=== PATIENT | female | born 1995 | race Caucasian/White ===

== ENCOUNTER 2016-11-27 21:55 | Inpatient (IN) | payer MEDICAID ==
[~2016-11-27] VITALS: Ht 165.1 cm; Wt 81.6 kg
[2016-11-27] MEDS ORDERED: DEXT 5%/LR + PITOCIN 20UNITS/L 1,000 ML IV SCH ×2 (21:58→23:40)
[2016-11-27] MEDS ORDERED: LACTATED RINGERS 1,000 ML IV SCH (21:58)
[2016-11-27] MEDS ORDERED: PENICILLIN G POTASSIUM 5 MMU in DEXT 5% WATER 100 ML IV NR (22:00)
[2016-11-27] MEDS ORDERED: NALOXONE HCL 0.4 MG/ML 1ML VIAL IM PRN (22:00)
[2016-11-27] MEDS ORDERED: CARBOPROST TROMETHAMINE 250 MCG/ML AMPUL IM PRN (22:00)
[2016-11-27] MEDS ORDERED: BUTORPHANOL TARTRATE 2 MG/ML VIAL IV PRN (22:00)
[2016-11-27] MEDS ORDERED: LIDOCAINE HCL 1% 20ML VIAL (Pyxis) INJ INFIL SCH (22:00)
[2016-11-27] MEDS ORDERED: METHYLERGONOVINE MALEATE 0.2 MG/ML IM PRN (22:00)
[2016-11-27] MEDS ORDERED: LIDOCAINE HCL 1% 20ML VIAL (Pyxis) INJ ONE (22:55)
[2016-11-27 23:30] LABS: BASOPHILS % 0.4 % (0.0-2.0); EOSINOPHILS % 0.2 % (0.0-5.0); HEMATOCRIT. 37.3 % (36.0-48.0); HEMOGLOBIN. 12.5 g/dL (12.0-16.0); LYMPHOCYTES % 13.2 % (20.0-50.0); MEAN CORPUSCULAR HEMOGLOBIN 31.1 pg (28.0-32.0); MEAN CORPUSCULAR VOLUME 92.4 fL (81.0-99.0); MEAN PLATELET VOLUME 10.8 fl (7.4-10.4); MONOCYTES % 4.9 % (2.0-8.0); NEUTROPHILS % 81.3 % (40.0-76.0); PLATELET 207 x1000/uL (130-400); RED BLOOD CELL COUNT 4.04 mill/uL (4.2-5.4); RED CELL DISTRIBUTION WIDTH 14.2 % (11.6-14.6)
[2016-11-27] MEDS ORDERED: INFLUENZA VIRUS VACCINE 0.5ML SYR IM ONE (23:30)
[2016-11-27 23:40] LABS: PARTIAL THROMBOPLASTIN TIME 23.1 sec (23.4-31.0)
[2016-11-27] MEDS ORDERED: HEMORRHOIDAL SUPP PR PRN (23:45)
[2016-11-27] MEDS ORDERED: BENZOCAINE/LANOLIN/ALOE VERA SPRAY TOP PRN (23:45)
[2016-11-27] MEDS ORDERED: ACETAMINOPHEN WITH CODEINE 300/30MG TABLET PO PRN (23:45)
[2016-11-27] MEDS ORDERED: GLYCERIN/WITCH HAZEL LEAF MEDICATED PAD TOP PRN (23:45)
[2016-11-27] MEDS ORDERED: LANOLIN OINT 0.25 GM TUBE TOP PRN (23:45)
[2016-11-28] VITALS (7 sets, daily range): BP systolic 107–118; BP diastolic 66–79
[2016-11-28] MEDS: IBUPROFEN 400MG TABLET PO PRN ×2 (04:48→20:42)
[2016-11-28] MEDS: ACETAMINOPHEN WITH CODEINE 300/30MG TABLET PO PRN ×2 (04:49→20:42)
[2016-11-28 06:48] LABS: EOSINOPHILS % 0.1 % (0.0-5.0); HEMATOCRIT. 34.8 % (36.0-48.0); HEMOGLOBIN. 11.8 g/dL (12.0-16.0); LYMPHOCYTES % 9.1 % (20.0-50.0); MEAN CORPUSCULAR HEMOGLOBIN 31.3 pg (28.0-32.0); MEAN CORPUSCULAR VOLUME 92.7 fL (81.0-99.0); MEAN PLATELET VOLUME 10.9 fl (7.4-10.4); NEUTROPHILS % 85.8 % (40.0-76.0); PLATELET 192 x1000/uL (130-400); RED BLOOD CELL COUNT 3.75 mill/uL (4.2-5.4)
[2016-11-28 06:52] LABS: RUBELLA IGG 56.4 IU/mL (4.99-10)
[2016-11-28 06:53] LABS: HEPATITIS B SURFACE ANTIGEN NEGATIVE
[2016-11-28] MEDS ORDERED: FERROUS SULFATE 325MG TABLET PO SCH (07:10)
[2016-11-28] MEDS ORDERED: MAGNESIUM/ALUMINUM HYDROXIDE/SIMETHICONE 30ML UDC PO SCH (07:10)
[2016-11-28] MEDS ORDERED: SIMETHICONE 80MG TABLET CHEW PO SCH (07:40)
[2016-11-28] MEDS ORDERED: PRENATAL VIT/FE FUMARATE/FA TABLET PO SCH (09:00)
[2016-11-29 04:00] VITALS: BP 148/82
[2016-11-29 08:20] VITALS: BP 112/71
== END 2016-11-29 13:50 | disposition home or self-care (01) | DRG 560 ==
LOC: L&D 21:55 → OBSVTOIN 21:55 → 7EST PP/OB 11-28 01:50
PROVIDERS: ADMIT Obstetrics & Gynecology; ATTEND Obstetrics & Gynecology
PROC: 10E0XZZ Delivery of Products of Conception, External Approach (ICD-10-PCS; principal; 2016-11-28 23:12)
DX: O76 Abnormality in fetal heart rate and rhythm complicating labor and delivery (principal); O60.14X0 Preterm labor third trimester with preterm delivery third trimester, not applicable or unspecified; Z37.0 Single live birth; Z3A.35 35 weeks gestation of pregnancy
CPT/HCPCS: 36415; 84550; 85025; 85384; 85610; 85730; 86592; 86703; 86762; 86850; 86900; 87340; 99281; G0378; J2540; J2590; J3490; J7060; J7120